=== PATIENT | male | born 1990 | race Caucasian/White ===

== ENCOUNTER 2020-05-05 09:07 | Emergency (ER) | payer SELFPAY ==
[2020-05-05 09:19] VITALS: BP 134/73; PULSE 72; RESP 16; TEMP 36.6; O2SAT 98
--- NOTE | 2020-05-05 09:33 | ED.GENADUL_ITS ---
Discharge Plan Disposition Patient Disposition: HOME Condition: Stable Discharge Details Clinical Impression: Finger fracture, Paronychia Primary Care Provider: None,None ED Provider: Justus Rider Home Meds and New Rx's Prescriptions: New cephalexin [Keflex] 500 mg capsule 500 mg PO QID 10 Days Qty: 40 RF: 0 Discharge Instructions Instructions: Finger Fracture (ED), Paronychia (ED) Additional Instructions: [id number] Tylenol and/or Motrin as directed for discomfort. Keflex as directed. Warm soaks and/or compresses every 2 hours for 20 minutes. Continue changing antibiotic dressing at least daily. Wear splint until reevaluation with orthopedics. I will give you the name and number of our local orthopedic provider, I recommend reaching out to his office later today or tomorrow for prompt outpatient reevaluation. Please watch for new or worsening symptoms and return to the ER for any concerns. Referrals: Tyler Palma MD [ [facility] STAFF PHYSICIAN] - Medical Decision Making 29-year-old gentleman presents with 2 separate issues of the left fourth digit. First it appears as though he has a worsening paronychia over the past week. There is an area of fluctuance and it appears as though I&D is likely indicated. Secondarily there was trauma yesterday. Sounds as though he may have had a displaced fracture or dislocation that he self reduced. Neuro, vascular, tendon intact. Will obtain x-ray. Tetanus is up-to-date. Performed I&D, please see procedure. Patient tolerated well. Bacitracin dressing applied. Finger x-ray read by me and it appears to be a small avulsion in the left fourth digit PIP joint. Will place into a splint and referred to orthopedics. Patient has no additional questions or concerns and is comfortable discharge at this time. Will initiate antibiotic therapy. Will have patient follow-up with orthopedics. Encouraged to return to the ER for new or worsening symptoms. HPI General Mode of arrival: ambulatory . Date/Time Provider Initiated Documentation: 05/05/20 09:08 . Limitations to Documentation: no limitations . Information obtained by: patient . HPI Narrative: 29-year-old gentleman, [id number], presents with left finger issues. He states that the finger has been infected for the last week or so after biting his finger nails short. Has had mild drainage. Over the past couple of days has increased with moderate pain, redness, swelling, and now no longer draining. He also states yesterday he was working on a vehicle, something slipped, and he believes he either broke or dislocated his finger. It was bent sideways, he instantly pulled it and put it back into place. He has decreased range of motion at that joint secondary to pain and swelling. He denies numbness or tingling. He gali es any other injury. Reports tetanus is up-to-date, roughly 1-1/2 years ago. Denies fever or rash elsewhere on his body. Related Data Home Medications Medication Instructions Recorded Confirmed cephalexin [Keflex] 500 mg PO QID 10 Days #40 cap 05/05/20 Previous Rx's Medication Instructions Recorded cephalexin [Keflex] 500 mg PO QID 10 Days #40 cap 05/05/20 Allergies Allergy/AdvReac Type Severity Reaction Status Date / Time No Known Allergies Allergy Unverified 05/05/20 09:22 General Stated Complaint: Orthopedic CAROLA: 4 Review of Systems Constitutional Constitutional: Denies fever(s) Musculoskeletal Musculoskeletal: Reports arthralgias, Reports joint swelling, Denies numbness, Reports stiffness and Denies tingling Integumentary/Breasts Skin/Breast: Reports erythema Neurologic Neurologic: Denies numbness and Denies tingling [facility] Social History Smoking/Tobacco Use Status: Current every day Tobacco Type: cigarettes Alcohol Intake: current Alcohol Intake frequency: a few times a week Drug use: Daily Substance use type: marijuana Do you feel safe at home: Yes Do you feel safe in your relationship?: Yes Exam Const General: cooperative, healthy appearing, comfortable and no acute distress Orientation: alert and awake [facility] Head: normal to inspection, normocephalic and atraumatic Mouth: moist mucous membranes Eyes Conjunctivae: conjunctivae normal Neck Neck: normal visual inspection, trachea midline and supple Resp Effort & Inspection: normal respiratory effort and able to speak in complete sentences Cardio Rate: regular rate Rhythm: regular rhythm Skin General skin exam: no rashes or lesions noted Neuro General: patient alert, patient awake, moves all extremities and no focal motor deficits Motor: muscle tone normal throughout Sensory Exam: no sensory deficits noted Extrem Hand/finger images: 1. Swelling, ecchymosis, discomfort over the left fourth PIP joint. Patient does have limited range of motion secondary to pain and swelling. Neuro, vascular, tendon intact. Skin is intact. No obvious deformity 2. Left fourth digit, erythema, swelling, warmth, tenderness. Skin is intact. There is an area of mild fluctuance. Neuro, vascular, tendon intact. Psych Appearance: grossly normal Mental Status: mental status grossly normal Course Vital Signs Vital signs: Vital Signs Temperature 36.6 C 05/05/20 09:19 Pulse 72 05/05/20 09:19 Respiratory Rate 16 05/05/20 09:19 Blood Pressure 134/73 05/05/20 09:19 Pulse Oximetry 98 05/05/20 09:19 Temperature 36.6 C 05/05/20 09:19 Temperature Source Skin 05/05/20 09:19 Pulse 72 05/05/20 09:19 Respiratory Rate 16 05/05/20 09:19 Respiratory Effort Non-Labored 05/05/20 09:22 Blood Pressure 134/73 05/05/20 09:19 Blood Pressure Position Sitting 05/05/20 09:19 Pulse Oximetry 98 05/05/20 09:19 Oxygen Delivery Method Room Air 05/05/20 09:19 Oxygen Flow Rate 0 05/05/20 09:19 Pain Level 5 05/05/20 09:19 Procedures Abscess I/D Site: Hand Side (if applicable): Left Local Anesthetic: Lidocaine 1% Amount of anesthesia used (mL): 5 Technique: Incised with #11 Blade Amount of fluid expressed (mL): 2 Irrigation: No Packing used?: None Complications: Pain and Bleeding
--- NOTE | 2020-05-05 10:00 | DI.RAD_ITS ---
EXAM: XR FINGER LT RING EXAM DATE/TIME: CLINICAL HISTORY: Injury yesterday, popped it back in. TECHNIQUE: 2D digital imaging was performed. COMPARISON: None. FINDINGS: BONES: There is a tiny density at the volar aspect of the base the middle phalanx. This is suspiciou s for a small avulsed fracture. No bony destructive lesion is seen. JOINTS: No dislocation is present. SOFT TISSUE: Mild soft tissue swelling. IMPRESSION: Tiny avulsed fracture at the volar aspect of the base of the middle phalanx of the ring finger. DATA REPOSITORY: RADIATION DOSE DELIVERED:
[2020-05-05 10:14] VITALS: BP 134/73; PULSE 72; RESP 16; TEMP 36.6; O2SAT 98
--- NOTE | 2020-05-05 10:15 | NUR.NOTE ---
Nursing Note: bacitracin dressing applied. Large baseball splint applied and fit- provider aware and has reviewed
== END 2020-05-05 10:28 | disposition home or self-care (01) ==
PROVIDERS: Emergency Provider Physician Assistant
DX: S62.615A Displaced fracture of proximal phalanx of left ring finger, initial encounter for closed fracture (principal); X50.9XXA Other and unspecified overexertion or strenuous movements or postures, initial encounter; L03.012 Cellulitis of left finger
CPT/HCPCS: 10060; 26720; 73140